=== PATIENT | male | born 1965 | race African-American/Black ===

== ENCOUNTER 2019-01-23 18:31 | Emergency (ER) | payer OTHER, SELFPAY ==
[2019-01-23 18:41] VITALS: BP 130/79; PULSE 72; RESP 20; O2SAT 97; BMI 32.3
--- NOTE | 2019-01-23 19:44 | ED.LOWEXIN ---
HPI - Extremity Injury (Lower) <Mary Dai PA-C - Last Filed: 01/23/19 22:23> General Chief Complaint: Extremity Injury, Lower Stated Complaint: fell, pain in right quad Time Seen by Provider: 01/23/19 18:37 Source: patient Mode of arrival: ambulatory Limitations: no limitations History of Present Illness HPI Narrative: This 53-year-old male comes in due to to knee and lower quadriceps pain after he twisted. He states he was walking across the grass and stepped in a hole, twisted the knee and fell sideways. He states he felt pain and a pop and a give-way sensation in the knee, like a ?tear?. He states got some help getting up and it was painful to bear weight. He states that he thinks ankle twisted a little bit but this is not particularly painful. He states that the knee does seem a little lax. He denies any pain in the hip, or any other injury. He did take some ibuprofen at home. Related Data Home Medications Medication Instructions Recorded Confirmed aspirin 81 mg PO QDAY #0 11/29/16 atorvastatin [Lipitor] 40 mg PO HS #0 11/29/16 carvedilol [Coreg] 12.5 mg PO BID #0 11/29/16 Previous Rx's Medication Instructions Recorded hydrocodone-acetaminophen 0 tab PO Q6HP PRN #15 tab 11/29/16 methocarbamol 500 mg PO QIDP PRN #14 tab 11/29/16 Allergies Allergy/AdvReac Type Severity Reaction Status Date / Time No Known Allergies Allergy Uncoded 01/17/18 12:42 Review of Systems <Mary Dai PA-C - Last Filed: 01/23/19 22:23> Review of Systems ROS Unobtainable: All systems reviewed & are unremarkable except as noted in HPI and below PFSH <Mary Dai PA-C - Last Filed: 01/23/19 22:23> Medical History (Updated 01/23/19 @ 20:27 by Mary Dai PA-C) CAD (coronary artery disease) (Chronic) Surgical History (Updated 01/23/19 @ 20:01 by Mary Dai PA-C) History of heart artery stent (Chronic) Status post lumbar spinal fusion (Resolved) Social History Smoking Status: Never smoker Social History Smoking Status: Never smoker Exam <Mary Dai PA-C - Last Filed: 01/23/19 22:23> Narrative Exam Narrative: GENERAL APPEARANCE: Patient sitting comfortably, in no distress. LUNGS: Clear to auscultation bilaterally. HEART: Rate and rhythm regular without murmur, normal S1 and S2, no S3 or S4. MUSCULOSKELETAL: Right knee mild effusion. Mild tenderness over the quadriceps tendon and proximal border of the knee, no point tenderness over the joint line or inferior to the patella. No tenderness over the right ankle or proximal quadriceps. Right Quadriceps strength is intact against resistance, no tenderness. he is tender with right knee flexion actively and will flex to about 45?, no tenderness with passive flexion and range of motion which is normal. no obvious laxity but difficult to fully assess NEUROVASCULAR: Right lower extremity sensation is grossly intact, warm and pink Initial Vital Signs Initial Vital Signs: Vital Signs Pulse Rate 72 01/23/19 18:41 Respiratory Rate 20 01/23/19 18:41 Blood Pressure 130/79 01/23/19 18:41 Pulse Oximetry 97 01/23/19 18:41 <DO Yosvany Portillo Last Filed: 01/23/19 23:23> Initial Vital Signs Initial Vital Signs: Vital Signs Pulse Rate 72 01/23/19 18:41 Respiratory Rate 20 01/23/19 18:41 Blood Pressure 130/79 01/23/19 18:41 Pulse Oximetry 97 01/23/19 18:41 Course <Mary Dai PA-C - Last Filed: 01/23/19 22:23> Orders Ordered: ED Orders 01/23/19 19:54 XR knee RT 3V Stat Vital Signs - 8 hr 01/23/19 18:41 01/23/19 20:30 Pulse Rate 72 72 Respiratory Rate 20 16 Blood Pressure 130/79 Blood Pressure [Left Arm] 131/69 Pulse Oximetry 97 98 <DO Yosvany Portillo Last Filed: 01/23/19 23:23> Orders Ordered: ED Orders 01/23/19 19:54 XR knee RT 3V Stat Vital Signs - 8 hr 01/23/19 18:41 01/23/19 20:30 Pulse Rate 72 72 Respiratory Rate 20 16 Blood Pressure 130/79 Blood Pressure [Left Arm] 131/69 Pulse Oximetry 97 98 MDM - Extremity Injury (Lower) <Mary Dai PA-C - Last Filed: 01/23/19 22:23> Imaging Data xr knee: Radiologist's impression: [address] [address] XRay Report Signed Patient: Singh Zelaya [facility]#: [id number] : 1965Acct:[id number] Age/Sex: 53 / MDate of Service: 01/23/19 Loc: ED Accession Number: [id number] Procedure: XR knee RT 3V Ordering Provider: Mary Dai P.A-C PROCEDURE: XR KNEE RT 3V INDICATIONS: pain, swelling after twist/fall TECHNIQUE: 3 views of the knee were acquired. COMPARISON: None. FINDINGS: Bones: No fractures or dislocations. No suspicious bony lesions. Soft tissues: No joint effusion. No suspicious soft tissue calcifications. IMPRESSION: No acute fracture. No osseous lesion. If clinical suspicion and/or symptoms persist, further assessment with repeat plainfilms, or advanced imaging (e.g., CT, MRI, or bone scan) may be helpful for further assessment. Dictated by: Francisca Herrera M.D. on 01/23/2019 at 20:18 Approved by: Francisca Herrera M.D. on 01/23/2019 at 20:18 Discharge Plan Departure Patient Disposition: Home Clinical Impression: Internal derangement of knee Qualifiers: Laterality: right Qualified Code(s): M23.91 - Unspecified internal derangement of right knee Discharge Date/Time: 01/23/19 20:55 Interventions: ED Discharge Assessment Last Done: 01/23/19 20:54 Instructions: Meniscal Tear, Knee Sprain Activity Restrictions/Additional Instructions: You may have simply strained your knee and the tendon up above it where the quadriceps muscle attaches, however with your description of the injury, I am concerned about a torn ligament or meniscus (cartilage pad) which could be the source of the knee feeling unstable. Please wear the brace that we gave whenever you are up on your feet to help with pain instability. You can take your usual [id number] pain medicine as needed (preferably Tylenol given your heart history). Please see your PCP in a few days for recheck. Return to ED if you have any acutely worsening symptoms Prescriptions: No Action atorvastatin [Lipitor] 40 MG tablet 40 mg PO HS Qty: 0 RF: 0 carvedilol [Coreg] 12.5 MG tablet 12.5 mg PO BID Qty: 0 RF: 0 aspirin 81 MG tablet,chewable 81 mg PO QDAY Qty: 0 RF: 0 methocarbamol 500 MG tablet 500 mg PO QIDP PRNQty: 14 RF: 0 hydrocodone-acetaminophen 5 MG/325 MG tablet PO Q6HP PRNQty: 15 RF: 0 Referrals: Joshua Stiles PA-C [Primary Care Provider] - <Joshua Kim DO - Last Filed: 01/23/19 23:23> [facility] ED Attending Priyanka Attestation: I was available for consultation during this patient's emergency department encounter
--- NOTE | 2019-01-23 19:47 | ED_ITS ---
HPI - Extremity Injury (Lower) <Mary Dai PA-C - Last Filed: 01/23/19 22:23> General Chief Complaint: Extremity Injury, Lower Stated Complaint: fell, pain in right quad Time Seen by Provider: 01/23/19 18:37 Source: patient Mode of arrival: ambulatory Limitations: no limitations History of Present Illness HPI Narrative: This 53-year-old male comes in due to to knee and lower quadrice ps pain after he twisted. He states he was walking across the grass and stepped in a hole, twisted the knee and fell sideways. He states he felt pain and a pop and a give-way sensation in the knee, like a ?tear?. He states got some help getting up and it was painful to bear weight. He states that he thinks ankle twisted a little bit but this is not particularly painful. He states that the knee does seem a little lax. He denies any pain in the hip, or any other injury. He did take some ibuprofen at home. Related Data Home Medications Medication Instructions Recorded Confirmed aspirin 81 mg PO QDAY #0 11/29/16 atorvastatin [Lipitor] 40 mg PO HS #0 11/29/16 carvedilol [Coreg] 12.5 mg PO BID #0 11/29/16 Previous Rx's Medication Instructions Recorded hydrocodone-acetaminophen 0 tab PO Q6HP PRN #15 tab 11/29/16 methocarbamol 500 mg PO QIDP PRN #14 tab 11/29/16 Allergies Allergy/AdvReac Type Severity Reaction Status Date / Time No Known Allergies Allergy Uncoded 01/17/18 12:42 Review of Systems <Mary Dai PA-C - Last Filed: 01/23/19 22:23> Review of Systems ROS Unobtainable: All systems reviewed & are unremarkable except as noted in HPI and below PFSH <Mary Dai PA-C - Last Filed: 01/23/19 22:23> Medical History (Updated 01/23/19 @ 20:27 by Mary Dai PA-C) CAD (coronary artery disease) (Chronic) Surgical History (Updated 01/23/19 @ 20:01 by Mary Dai PA-C) History of heart artery stent (Chronic) Status post lumbar spinal fusion (Resolved) Social History Smoking Status: Never smoker Social History Smoking Status: Never smoker Exam <Mary Dai PA-C - Last Filed: 01/23/19 22:23> Narrative Exam Narrative: GENERAL APPEARANCE: Patient sitting comfortably, in no distress. LUNGS: Clear to auscultation bilaterally. HEART: Rate and rhythm regular without murmur, normal S1 and S2, no S3 or S4. MUSCULOSKELETAL: Right knee mild effusion. Mild tenderness over the quadriceps tendon and proximal border of the knee, no point tenderness over the joint line or inferior to the patella. No tenderness over the right ankle or proximal quadriceps. Right Quadriceps strength is intact against resistance, no tenderness. he is tender with right knee flexion actively and will flex to about 45?, no tenderness with passive flexion and range of motion which is normal. no obvious laxity but difficult to fully assess NEUROVASCULAR: Right lower extremity sensation is grossly intact, warm and pink Initial Vital Signs Initial Vital Signs: Vital Signs Pulse Rate 72 01/23/19 18:41 Respiratory Rate 20 01/23/19 18:41 Blood Pressure 130/79 01/23/19 18:41 Pulse Oximetry 97 01/23/19 18:41 <DO Yosvany Portillo Last Filed: 01/23/19 23:23> Initial Vital Signs Initial Vital Signs: Vital Signs Pulse Rate 72 01/23/19 18:41 Respiratory Rate 20 01/23/19 18:41 Blood Pressure 130/79 01/23/19 18:41 Pulse Oximetry 97 01/23/19 18:41 Course <Mary Dai PA-C - Last Filed: 01/23/19 22:23> Orders Ordered: ED Orders 01/23/19 19:54 XR knee RT 3V Stat Vital Signs - 8 hr 01/23/19 18:41 01/23/19 20:30 Pulse Rate 72 72 Respiratory Rate 20 16 Blood Pressure 130/79 Blood Pressure [Left Arm] 131/69 Pulse Oximetry 97 98 <DO Yosvany Portillo Last Filed: 01/23/19 23:23> Orders Ordered: ED Orders 01/23/19 19:54 XR knee RT 3V Stat Vital Signs - 8 hr 01/23/19 18:41 01/23/19 20:30 Pulse Rate 72 72 Respiratory Rate 20 16 Blood Pressure 130/79 Blood Pressure [Left Arm] 131/69 Pulse Oximetry 97 98 MDM - Extremity Injury (Lower) <Mary Dai PA-C - Last Filed: 01/23/19 22:23> Imaging Data xr knee: Radiologist's impression: [address] [address] XRay Report Signed Patient: Singh Zelaya [facility]#: [id number] : 1965Acct:[id number] Age/Sex: 53 / MDate of Service: 01/23/19 Loc: ED Accession Number: [id number] Procedure: XR knee RT 3V Ordering Provider: Mary Dai P.A-C PROCEDURE: XR KNEE RT 3V INDICATIONS: pain, swelling after twist/fall TECHNIQUE: 3 views of the knee were acquired. COMPARISON: None. FINDINGS: Bones: No fractures or dislocations. No suspicious bony lesions. Soft tissues: No joint effusion. No suspicious soft tissue calcifications. IMPRESSION: No acute fracture. No osseous lesion. If clinical suspicion and/or symptoms persist, further assessment with repeat plainfilms, or advanced imaging (e.g., CT, MRI, or bone scan) may be helpful for further assessment. Dictated by: Francisca Herrera M.D. on 01/23/2019 at 20:18 Approved by: Francisca Herrera M.D. on 01/23/2019 at 20:18 Discharge Plan Departure Patient Disposition: Home Clinical Impression: Internal derangement of knee Qualifiers: Laterality: right Qualified Code(s): M23.91 - Unspecified internal derangement of right knee Discharge Date/Time: 01/23/19 20:55 Interventions: ED Discharge Assessment Last Done: 01/23/19 20:54 Instructions: Meniscal Tear, Knee Sprain Activity Restrictions/Additional Instructions: You may have simply strained your knee and the tendon up above it where the quadriceps muscle attaches, however with your description of the injury, I am concerned about a torn ligament or meniscus (cartilage pad) which could be the source of the knee feeling unstable. Please wear the brace that we gave whenever you are up on your feet to help with pain instability. You can take your usual [id number] pain medicine as needed (preferably Tylenol given your heart history). Please see your PCP in a few days for recheck. Return to ED if you have any acutely worsening symptoms Prescriptions: No Action atorvastatin [Lipitor] 40 MG tablet 40 mg PO HS Qty: 0 RF: 0 carvedilol [Coreg] 12.5 MG tablet 12.5 mg PO BID Qty: 0 RF: 0 aspirin 81 MG tablet,chewable 81 mg PO QDAY Qty: 0 RF: 0 methocarbamol 500 MG tablet 500 mg PO QIDP PRNQty: 14 RF: 0 hydrocodone-acetaminophen 5 MG/325 MG tablet PO Q6HP PRNQty: 15 RF: 0 Referrals: Joshua Stiles PA-C [Primary Care Provider] - <Joshua Kim DO - Last Filed: 01/23/19 23:23> [facility] ED Attending Priyanka Attestation: I was available for consultation during this patient's emergency department encounter
--- NOTE | 2019-01-23 19:54 | DI.RAD.S_ITS ---
PROCEDURE: XR KNEE RT 3V INDICATIONS: pain, swelling after twist/fall TECHNIQUE: 3 views of the knee were acquired. COMPARISON: None. FINDINGS: Bones: No fractures or dislocations. No suspicious bony lesions. Soft tissues: No joint effusion. No suspicious soft tissue calcifications. IMPRESSION: No acute fracture. No osseous lesion. If clinical suspicion and/or symptoms persist, further assessment with repeat plainfilms, or advanced imaging (e.g., CT, MRI, or bone scan) may be helpful for further assessment. Dictated by: Francisca Herrera M.D. on 01/23/2019 at 20:18 Approved by: Francisca Herrera M.D. on 01/23/2019 at 20:18
[2019-01-23 20:30] VITALS: BP 131/69; PULSE 72; RESP 16; O2SAT 98
== END 2019-01-23 20:55 | disposition home or self-care (01) ==
PROVIDERS: Emergency Provider Internal Medicine; PCP Physician Assistant
DX: M23.91 Unspecified internal derangement of right knee (principal); W19.XXXA Unspecified fall, initial encounter
CPT/HCPCS: 73562; 99283

== ENCOUNTER 2023-11-12 20:53 | Emergency (ER) | payer OTHER, SELFPAY ==
[2023-11-12 20:57] VITALS: BP 151/83; PULSE 68; RESP 18; TEMP 36.6; O2SAT 98; BMI 32.3
--- NOTE | 2023-11-12 21:03 | DI.RAD.S_ITS ---
PROCEDURE: XR SHOULDER RT MIN 2V INDICATIONS: Pain in his right shoulder joint TECHNIQUE: Three views of the shoulder were acquired. COMPARISON: None. FINDINGS: Bones: No fractures or dislocations. No suspicious bony lesions. Visualized ribs appear intact. Soft tissues: No suspicious soft tissue calcifications. IMPRESSION: No acute bony abnormality. Dictated by: Delma Rodriguez M.D. on 11/12/2023 at 21:33 Approved by: Delma Rodriguez M.D. on 11/12/2023 at 21:34
--- NOTE | 2023-11-13 02:26 | ED_ITS ---
HPI - Extremity Injury (Upper) General Chief Complaint: Extremity Injury, Upper Stated Complaint: Rt shoulder pain back pain and numbness Time Seen by Provider: 11/13/23 01:41 Source: patient Mode of arrival: Ambulatory History of Present Illness HPI narrative: 57-year-old male complaining of right shoulder pain and bilateral hand numbness and upper back pain. Onset was early this morning. Says that he was moving his right arm and felt something pull air. Did some heavy lifting a couple of days ago and is also working overhead little bit a couple of days ago. No chest pain no shortness of breath no recent traumatic injury. Both hands are numb but does not have weakness. Related Data Home Medications Medication Instructions Recorded Confirmed aspirin 81 mg chewable tablet 81 mg PO QDAY ##0 11/29/16 atorvastatin 40 mg tablet (Lipitor) 40 mg PO HS ##0 11/29/16 carvedilol 12.5 mg tablet (Coreg) 12.5 mg PO BID ##0 11/29/16 Previous Rx's Medication Instructions Recorded hydrocodone 5 mg-acetaminophen 325 0 tab PO Q6HP PRN #15 tabs 11/29/16 mg tablet methocarbamol 500 mg tablet 500 mg PO QIDP PRN #14 tabs 11/29/16 Allergies Allergy/AdvReac Type Severity Reaction Status Date / Time No Known Allergies Allergy Uncoded 01/17/18 12:42 Patient History Medical History (Updated 11/13/23 @ 02:36 by Jose L Ospina MD) CAD (coronary artery disease) Surgical History (Updated 01/23/19 @ 20:01 by Mary Dai PA-C) Status post lumbar spinal fusion History of heart artery stent Social History Smoking Status: Never smoker Smoking Status: Never smoker alcohol intake frequency: 0-2 drinks per day Substance Use Type: does not use Exam Initial Vital Signs Initial Vital Signs: Vital Signs Temperature 98 F 11/12/23 20:57 Pulse Rate 68 11/12/23 20:57 Respiratory Rate 18 11/12/23 20:57 Blood Pressure 151/83 H 11/12/23 20:57 Pulse Oximetry 98 11/12/23 20:57 Oxygen Delivery Method Room Air 11/12/23 20:57 Const General: No acute distress HENMT Head: normocephalic and atraumatic Neck Neck: full ROM, No lymphadenopathy and No tender Resp Effort & Inspection: normal respiratory effort Back/Spine/Pelvis Other: No focal midline tenderness. Has some paraspinous tenderness on the right side. Skin Other: Warm and dry Extrem Other: No bony deformity of the right shoulder. Good active range of motion with exception of decreased abduction. Distal neurovascular exam of both hands intact strength is intact in both arms light touch sensation intact in both arms Course Orders Ordered: ED Orders 11/12/23 21:03 XR shoulder RT min 2V Stat Vital Signs Vital signs: Vital Signs - 8 hr 11/12/23 20:57 Temperature 98 F Pulse Rate 68 Respiratory Rate 18 Blood Pressure 151/83 H Pulse Oximetry 98 Oxygen Delivery Method Room Air MDM - Extremity Injury (Upper) Imaging Data r shoulder: My Impression: Independent review right shoulder films, no fracture no dislocation Radiologist's Impression: [address] [address] XRay Report Signed Patient: Singh Zelaya MR#: [id number] : 1965 Acct:[id number] Age/Sex: 57 / M Date of Service: 11/12/23 Loc: ED Accession Number: [id number] Procedure: XR shoulder RT min 2V Ordering Provider: Jose L Ospina MD PROCEDURE: XR SHOULDER RT MIN 2V INDICATIONS: Pain in his right shoulder joint TECHNIQUE: Three views of the shoulder were acquired. COMPARISON: None. FINDINGS: Bones: No fractures or dislocations. No suspicious bony lesions. Visualized ribs appear intact. Soft tissues: No suspicious soft tissue calcifications. IMPRESSION: No acute bony abnormality. Dictated by: Delma Rodriguez M.D. on 11/12/2023 at 21:33 Approved by: Delma Rodriguez M.D. on 11/12/2023 at 21:34 [facility] Narrative Medical decision making narrative: 57-year-old male with right shoulder pain, not associated with trauma still has good active range of motion and no deformity, most likely muscle strain I do not think there is dislocation fracture or septic arthritis. Reports feeling numbness in his hands but has intact light touch sensation and motor function circulation is intact I do not think that this is a stroke or other acute neurologic phenomena. Recommended ibuprofen for pain limited heavy lifting and working overhead discharged home Discharge Plan Departure Patient Disposition: Home Clinical Impression: Muscle strain of right shoulder region Qualifiers: Encounter type: initial encounter Qualified Code(s): S46.911A - Strain of unspecified muscle, fascia and tendon at shoulder and upper arm level, right arm, initial encounter Instructions: DI for Shoulder Sprain Activity Restrictions/Additional Instructions: Recommend use ibuprofen 600 3 times a day as needed for pain, take this with food. Do not lift anything heavier than 20 lb and do not work over her head. Follow up soon with your primary care provider. Return to the emergency department for chest pain shortness of breath Prescriptions: No Action atorvastatin [Lipitor] 40 MG tablet 40 mg PO HS Qty: 0 carvedilol [Coreg] 12.5 MG tablet 12.5 mg PO BID Qty: 0 aspirin 81 MG tablet,chewable 81 mg PO QDAY Qty: 0 methocarbamol 500 MG tablet 500 mg PO QIDP PRNQty: 14 0RF hydrocodone-acetaminophen 5 MG/325 MG tablet 0 tab PO Q6HP PRNQty: 15 0RF Stand Alone Forms: Patient Portal/API, Work Release Note
[2023-11-13 02:42] VITALS: BP 128/68; PULSE 75; RESP 16; O2SAT 98
== END 2023-11-13 02:44 | disposition home or self-care (01) ==
PROVIDERS: Emergency Provider Emergency Medicine
DX: S46.911A Strain of unspecified muscle, fascia and tendon at shoulder and upper arm level, right arm, initial encounter (principal); X58.XXXA Exposure to other specified factors, initial encounter
CPT/HCPCS: 73030; 99281; 99282

== ENCOUNTER 2024-04-14 22:51 | Emergency (ER) | payer OTHER, SELFPAY ==
[2024-04-14 23:04] VITALS: BP 187/99; PULSE 71; RESP 18; TEMP 36.6; O2SAT 100; BMI 32.3
[2024-04-15] VITALS (7 sets, daily range): BP systolic 135–164; BP diastolic 71–92; PULSE 62–65; RESP 16–18; O2SAT 97–99
--- NOTE | 2024-04-15 01:22 | ED.WEAKNESS ---
HPI - Weakness General Chief complaint: Weakness Stated complaint: Low energy, headache, Time Seen by Provider: 04/15/24 00:44 Source: patient and family Mode of arrival: Ambulatory History of Present Illness HPI Narrative: 58-year-old male complains of generalized weakness, had frontal headache that seems to have resolved without specific treatment, denies photophobia, denies neck pain, denies focal weakness symptoms. No injury trauma or new activity. No change in medications. No exposure to persons with URI or other infectious symptoms. Related Data Home Medications Medication Instructions Recorded Confirmed aspirin 81 mg chewable tablet 81 mg PO QDAY ##0 11/29/16 atorvastatin 40 mg tablet (Lipitor) 40 mg PO HS ##0 11/29/16 carvedilol 12.5 mg tablet (Coreg) 12.5 mg PO BID ##0 11/29/16 Previous Rx's Medication Instructions Recorded hydrocodone 5 mg-acetaminophen 325 0 tab PO Q6HP PRN #15 tabs 11/29/16 mg tablet methocarbamol 500 mg tablet 500 mg PO QIDP PRN #14 tabs 11/29/16 Allergies Allergy/AdvReac Type Severity Reaction Status Date / Time No Known Allergies Allergy Uncoded 01/17/18 12:42 Review of Systems Review of Systems Narrative: per HPI Patient History Medical History (Updated 04/15/24 @ 03:44 by Dallas Ledezma MD) CAD (coronary artery disease) Surgical History (Updated 01/23/19 @ 20:01 by Mary Dai PA-C) Status post lumbar spinal fusion History of heart artery stent Social History Smoking Status: Never smoker Smoking Status: Never smoker alcohol intake frequency: 0-2 drinks per day Substance Use Type: does not use Exam Narrative Exam Narrative: GENERAL: Well-developed patient, in mild distress. HEAD: Atraumatic. Normocephalic. EYES: Pupils equal round and reactive. Extraocular motions intact. No scleral icterus. No injection or drainage. ENT: Nose without bleeding, purulent drainage. Throat without erythema, tonsillar hypertrophy or exudate. Airway patent. NECK: Trachea midline. Non tender CARDIOVASCULAR: Regular rate and rhythm without murmurs, gallops, or rubs. RESPIRATORY: Clear to auscultation. Breath sounds equal bilaterally. No wheezes, rales, or rhonchi. GASTROINTESTINAL: Abdomen soft, non-tender, nondistended. EXTREMITIES: No edema or joint tenderness. BACK: Nontender without deformity or crepitance. No flank tenderness. NEURO: AOx3. SKIN: No rash or erythema of visible areas Initial Vital Signs Initial Vital Signs: Vital Signs Temperature 97.8 F 04/14/24 23:04 Pulse Rate 71 04/14/24 23:04 Respiratory Rate 18 04/14/24 23:04 Blood Pressure 187/99 H 04/14/24 23:04 Pulse Oximetry 100 04/14/24 23:04 Oxygen Delivery Method Room Air 04/14/24 23:04 Course Orders Ordered: ED Orders 04/15/24 02:20 XR chest 1V Stat EKG-12 Lead Stat 04/15/24 02:35 Covid-19 + FLU A/B + RSV - PCR Stat Urinalysis and Microscopic Stat 04/15/24 02:45 Complete Blood Count AUTO DIFF Stat Comprehensive Metabolic Panel Stat Lipase Stat Troponin & CK Cardiac Panel Stat Discontinued Medications Sodium Chloride (Normal Saline 0.9%) 1,000 mls @ 1,000 mls/hr IV BOLUS ONE Stop: 04/15/24 03:19 Last Admin: 04/15/24 02:39 Dose: 1,000 mls/hr Documented By: HNG Vital Signs Vital signs: Vital Signs - 8 hr 04/14/24 23:04 04/15/24 01:00 04/15/24 01:30 Temperature 97.8 F Pulse Rate 71 64 62 Respiratory Rate 18 18 16 Blood Pressure 187/99 H 156/82 H 147/85 H Pulse Oximetry 100 98 97 Oxygen Delivery Method Room Air Room Air 04/15/24 02:00 04/15/24 02:48 04/15/24 02:49 Temperature Pulse Rate 65 65 Respiratory Rate 16 Blood Pressure 164/92 H 142/84 H Pulse Oximetry 97 99 Oxygen Delivery Method Room Air 04/15/24 02:49 04/15/24 03:00 04/15/24 03:00 Temperature Pulse Rate 64 62 Respiratory Rate Blood Pressure 140/76 Pulse Oximetry 99 97 Oxygen Delivery Method 04/15/24 03:30 04/15/24 03:30 Temperature Pulse Rate 63 Respiratory Rate 18 Blood Pressure 135/71 Pulse Oximetry 97 Oxygen Delivery Method MDM - Weakness Lab Data Attestation: I reviewed the patient's lab results. 04/15/24 02:45 04/15/24 02:45 Labs: Lab Results 04/15/24 04/15/24 Range/Units 02:35 02:45 WBC 4.1 L (4.5-11.0) X10^3/uL RBC 5.14 (4.5-5.9) X10^6/uL Hgb 15.2 (13.5-17.5) g/dL Hct 43.7 (41-53) % MCV 85.2 (80-100) fL MCH 29.6 (26-34) PG MCHC 34.7 (30-36) % RDW 13.8 (11.6-14.8) % Plt Count 141 L (150-400) X10^3/uL Neut % (Auto) 44.5 L (50-75) % Lymph % (Auto) 42.9 H (25-40) % [place] % (Auto) 10.8 (3-14) % Eos % (Auto) 1.6 L (2-4) % Baso % (Auto) 0.2 (0-2) % Neut # (Auto) 1800 (3091-5420) /uL Lymph # (Auto) 1800 (8764-5697) /uL [place] # (Auto) 400 (0-900) /uL Eos # (Auto) 100 (0-450) /uL Baso # (Auto) 0 (0-100) /uL Sodium 139 (137-145) mmol/L Potassium 4.1 (3.4-5.1) mmol/L Chloride 107 (98-107) mmol/L Carbon Dioxide 27 (22-32) mmol/L BUN 14 (9-20) mg/dL Creatinine 0.91 (0.66-1.25) mg/dL Estimated GFR > 60 (>60) mL/min BUN/Creatinine Ratio 15.4 (6-22) Glucose 103 (80-110) mg/dL Calcium 9.9 (8.4-10.2) mg/dL Total Bilirubin 0.7 (0.2-1.3) mg/dL AST 24 (17-59) IU/L ALT 29 (<50) IU/L Alkaline Phosphatase 86 (38-126) U/L Total Creatine Kinase 147 (55-170) U/L Troponin I < 0.012 (0.01-0.034) ng/mL Total Protein 8.0 (6.3-8.2) g/dL Albumin 4.6 (3.5-5.0) g/dL Globulin 3.4 (1.7-4.1) g/dL Albumin/Globulin Ratio 1.4 (1.0-2.8) Lipase 53 (23-300) U/L Urine Color Yellow Urine Appearance Clear Urine pH 6.0 (4.5-8.0) Ur Specific [place] 1.015 (1.000-1.035) Urine Protein Negative (Negative) Urine Glucose (UA) Negative (Negative) g/dL Urine Ketones Negative (NEGATIVE) Urine Occult Blood Negative (Negative) Urine Nitrate Negative (Negative) Urine Bilirubin Negative (NEGATIVE) Urine Urobilinogen 0.2 (0.2) E.U./dL Ur Leukocyte Esterase Negative (NEGATIVE) Urine RBC None seen (0-5/HPF) Urine WBC None seen (0-5/HPF) Ur Squamous Epith Cells 0-1 /hpf (0-5/HPF) Urine Bacteria None seen (None) Ur Culture Indicated? Cult not indicated Vol Urine Centrifuged 10ml (spun) SARS-CoV-2 (PCR) Negative (Negative) Influenza A (RT-PCR) Flu a negative (NEGATIVE) Influenza B (RT-PCR) Flu b negative (NEGATIVE) RSV (PCR) Negative (Negative) ECG Data Interpretation: Sinus bradycardia with rate 59, no obvious ST segment elevation or depression changes. LA interval 154, QRS 80, QTC 386. [facility] Narrative Medical decision making narrative: 58-year-old male with generalized weakness, resolved headache, no fevers, desires workup. Respiratory panel negative. EKG without obvious ischemic changes. Troponin negative. Electrolytes unremarkable. Urinalysis negative. Liver functions also unremarkable. Chest x-ray single view. Impression: ?No acute findings.? See teleradiology report IV fluid bolus given, patient felt much improved, consider component of dehydration. Encouraged to drink plenty of fluids. Home with family Discharge Plan Departure Patient Disposition: Home Clinical Impression: Generalized weakness, Headache Activity Restrictions/Additional Instructions: Generalized weakness with mild headache symptoms, no fever, no injuries. Reassuring exam. Labs sent which were unremarkable. EKG and troponin did not suggest recent heart attack problem. Chest x-ray unremarkable. Urinalysis negative. Respiratory panel swab was negative. IV fluid bolus was given, and he felt much better. Consider component of dehydration causing your weakness and perhaps your headache symptoms. Drink plenty of fluids. Recheck to this/nearest emergency department for any change worsening symptoms or any concerns or if you have recurrence of symptoms not responsive to increased oral fluids. Consider use of ibuprofen and or Tylenol for minor discomfort symptoms. Prescriptions: No Action atorvastatin [Lipitor] 40 MG tablet 40 mg PO HS Qty: 0 carvedilol [Coreg] 12.5 MG tablet 12.5 mg PO BID Qty: 0 aspirin 81 MG tablet,chewable 81 mg PO QDAY Qty: 0 methocarbamol 500 MG tablet 500 mg PO QIDP PRNQty: 14 0RF hydrocodone-acetaminophen 5 MG/325 MG tablet 0 tab PO Q6HP PRNQty: 15 0RF Stand Alone Forms: Patient Portal/API
--- NOTE | 2024-04-15 02:20 | DI.RAD.S_ITS ---
PROCEDURE: XR CHEST 1V INDICATIONS: chest pain TECHNIQUE: One view of the chest was acquired. COMPARISON: None. FINDINGS: Surgical changes and devices: Lumbar spinal fixation hardware is partially included.. Lungs and pleura: Lungs are clear. No pleural effusions or pneumothorax. Mediastinum: Mediastinal contours appear normal. Heart size is normal. Bones and chest wall: No suspicious bony lesions. Overlying soft tissues appear unremarkable. IMPRESSION: No acute cardiopulmonary abnormality is seen. There is no significant discrepancy when compared to the overnight preliminary report. Approved by: Dayron Aviles M.D. on 04/15/2024 at 8:00
--- NOTE | 2024-04-15 02:30 | EKG_ITS ---
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
[2024-04-15] MEDS: SODIUM CHLORIDE 0.9% 1,000 ML 1000 ML IV (02:39)
[2024-04-15 02:41] LABS: Appearance Urine UA CLEAR; Bilirubin Urine UA NEGATIVE (NEGATIVE); Glucose Urine UA NEGATIVE (Negative); Ketones Urine UA NEGATIVE (NEGATIVE); Leukocyte Esterase Urine UA NEGATIVE (NEGATIVE); Nitrite Urine UA NEGATIVE (Negative); Occult Blood Urine UA NEGATIVE (Negative); Protein Urine UA NEGATIVE (Negative); Specific Gravity Urine UA 1.015 (1.000-1.035); Urobilinogen Urine UA 0.2 E.U./dL (0.2)
[2024-04-15 02:48] LABS: Bacteria Urine None Seen; Color Urine UA Yellow; RBC Urine None Seen (0-5/HPF); Squamous Epithelial Cell Urine 0-1 /HPF (0-5/HPF); Urine Volume 10mL (spun); WBC Urine None Seen (0-5/HPF)
[2024-04-15 02:49] LABS: Culture Indicated Urine Cult Not Indicated
[2024-04-15 02:58] LABS: Add Manual Diff / Slide Review NO; Basophils Absolute Auto 0 /uL (0-100); Basophils Percent Auto 0.2 % (0-2); Eosinophils Absolute Auto 100 /uL (0-450); Eosinophils Percent Auto 1.6 % (2-4); Hematocrit 43.7 % (41-53); Hemoglobin 15.2 g/dL (13.5-17.5); Lymphocytes Absolute Auto 1800 /uL (1100-4500); Lymphocytes Percent Auto 42.9 % (25-40); Mean Corpuscular HGB Conc 34.7 % (30-36); Mean Corpuscular Hemoglobin 29.6 PG (26-34); Mean Corpuscular Volume 85.2 fL (80-100); Monocytes Absolute Auto 400 /uL (0-900); Monocytes Percent Auto 10.8 % (3-14); Neutrophils Absolute Auto 1800 /uL (1500-7000); Neutrophils Percent Auto 44.5 % (50-75); Platelet Count 141 X10^3/uL (150-400); Red Blood Cell Count 5.14 X10^6/uL (4.5-5.9); Red Cell Distribution Width 13.8 % (11.6-14.8); White Blood Cell Count 4.1 X10^3/uL (4.5-11.0)
[2024-04-15 03:08] LABS: Alanine Aminotransferase 29 IU/L (<50); Albumin 4.6 g/dL (3.5-5.0); Albumin Globulin Ratio 1.4 (1.0-2.8); Alkaline Phosphatase 86 U/L (38-126); Aspartate Aminotransferase 24 IU/L (17-59); BUN Creatinine Ratio 15.4 (6-22); Bilirubin Total 0.7 mg/dL (0.2-1.3); Blood Urea Nitrogen 14 mg/dL (9-20); Calcium 9.9 mg/dL (8.4-10.2); Carbon Dioxide 27 mmol/L (22-32); Chloride 107 mmol/L (98-107); Creatine Kinase 147 U/L (55-170); Estimated Glomerular Filt Rate > 60 mL/min (>60); Globulin 3.4 g/dL (1.7-4.1); Glucose 103 mg/dL (80-110); HEMOLYSIS < 15 (0-50); Lipase 53 U/L (23-300); Potassium 4.1 mmol/L (3.4-5.1); Sodium 139 mmol/L (137-145)
[2024-04-15 03:20] LABS: Influenza A - CEPHEID Flu A NEGATIVE (NEGATIVE); Influenza B - CEPHEID Flu B NEGATIVE (NEGATIVE); Respiratory Syncytial Virus Negative (Negative)
[2024-04-15 03:20] LABS: Troponin I < 0.012 ng/mL (0.01-0.034)
[2024-04-15 03:22] LABS: COVID-19 CEPHEID 4-PLEX PCR Negative (Negative)
== END 2024-04-15 03:57 | disposition home or self-care (01) ==
PROVIDERS: Emergency Provider Emergency Medicine
DX: R53.1 Weakness (principal); R51.9 Headache, unspecified
CPT/HCPCS: 0241U; 36415; 71045; 80053; 81001; 82550; 83690; 84484; 85025; 93005; 99284